=== PATIENT | male | born 1930 | race Caucasian/White ===

== ENCOUNTER 2016-08-16 13:56 | Day surgery (SDC) | payer OTHER ==
[~2016-08-16] VITALS: Ht 165.1 cm; Wt 69.8 kg
[~2016-08-16 13:56] MED LIST: ALLOPURINOL100 MG PO; DILTIAZEM 24HR240 MG PO; FLOMAX0.4 MG PO; ISOSORBIDE MONO30 MG PO; ISOSORBIDE MONO60 MG PO; LASIX40 MG PO; LIPITOR10 MG PO; METOPROLOL TART25 MG PO; POTASSIUM CHLO10 ME3 PO; PROCRIT10000 UNI1 SQ; PROSCAR5 MG PO; ROCALTROL0.25 MCG PO; TYLENOL REGULA325 MG PO; VENTOLIN HFA18 GM IH; WARFARIN SODIU2.5 MG PO; WARFARIN SODIUM5 MG PO; ZYLOPRIM100 MG PO
[2016-08-16 15:58] LABS: METH RESISTANT S AUREUS PCR NEGATIVE (NEGATIVE)
[2016-08-16 16:00] LABS: PROBE CHECK PASS; SPECIMEN PROCESSING CONTROL PASS
== END 2016-08-16 16:20 | disposition home or self-care (01) ==
LOC: CATH 13:56
PROVIDERS: Surgery
DX: T82.858A Stenosis of other vascular prosthetic devices, implants and grafts, initial encounter (principal); Y83.2 Surgical operation with anastomosis, bypass or graft as the cause of abnormal reaction of the patient, or of later complication, without mention of misadventure at the time of the procedure; Z99.2 Dependence on renal dialysis; I12.0 Hypertensive chronic kidney disease with stage 5 chronic kidney disease or end stage renal disease; N18.6 End stage renal disease; E78.5 Hyperlipidemia, unspecified; J44.9 Chronic obstructive pulmonary disease, unspecified; I25.10 Atherosclerotic heart disease of native coronary artery without angina pectoris; I25.2 Old myocardial infarction
CPT/HCPCS: 87641; C1725; C1769; C1894; J1644; J2250; J3010

== ENCOUNTER 2016-10-08 07:36 | Day surgery (SDC) | payer OTHER ==
[~2016-10-08] VITALS: Ht 165.1 cm; Wt 65.5 kg
[2016-10-08 08:08] VITALS: BP 170/67
[2016-10-08 08:36] LABS: HEMATOCRIT 34.4 % (38.0-50.0); MCH 31.5 PG (29.0-34.0); MCHC 30.8 G/DL (30.0-36.0); MCV 102.4 FL (86-99); MEAN PLAT.VOLUME 10.1 uM^3 (9.0-12.4); PLATELET COUNT 192 K/uL (156-360); RBC DIS.WIDTH-CV 16.5 % (11.8-14.6); RBC DIS.WIDTH-SD 61.2 % (39-53); RED BLOOD COUNT 3.36 M/uL (4.00-5.50)
[2016-10-08 09:12] LABS: ANION GAP 12 MEQ/L (2-14); CHLORIDE 104 MEQ/L (99-109); GFR ESTIMATE (CALCULATED) 8 mL/min/; GLUCOSE 89 mg/dL (70-99); POTASSIUM 4.7 MEQ/L (3.7-5.4); SAMPLE HEMOLYSIS CHECK 0; SAMPLE ICTERIC CHECK 0; SAMPLE LIPEMIA CHECK 0; SODIUM 138 MEQ/L (136-147); UREA NITROGEN (BUN) 53 mg/dL (9-23)
[2016-10-08 09:45] VITALS: BP 158/70
[2016-10-08 12:20] VITALS: BP 148/68
== END 2016-10-08 15:20 | disposition home or self-care (01) ==
LOC: SDC 07:36 → 2EAST 07:45
PROVIDERS: Surgery
DX: T82.868A Thrombosis due to vascular prosthetic devices, implants and grafts, initial encounter (principal); T82.858A Stenosis of other vascular prosthetic devices, implants and grafts, initial encounter; Y83.2 Surgical operation with anastomosis, bypass or graft as the cause of abnormal reaction of the patient, or of later complication, without mention of misadventure at the time of the procedure; I12.0 Hypertensive chronic kidney disease with stage 5 chronic kidney disease or end stage renal disease; N18.6 End stage renal disease; Z99.2 Dependence on renal dialysis; J44.9 Chronic obstructive pulmonary disease, unspecified; Z95.810 Presence of automatic (implantable) cardiac defibrillator; I25.10 Atherosclerotic heart disease of native coronary artery without angina pectoris; Z95.1 Presence of aortocoronary bypass graft; E78.5 Hyperlipidemia, unspecified; Z87.891 Personal history of nicotine dependence
CPT/HCPCS: 80048; 85027; 93005; C1725; C1757; C1769; C1874; C1894; C2628; G0378; J0690; J1644; J7030

== ENCOUNTER 2017-01-24 09:57 | Day surgery (SDC) | payer OTHER ==
[~2017-01-24] VITALS: Ht 170.2 cm; Wt 66.7 kg
== END 2017-01-24 12:30 | disposition home or self-care (01) ==
LOC: CATH 09:57
DX: T82.858A Stenosis of other vascular prosthetic devices, implants and grafts, initial encounter (principal); I12.0 Hypertensive chronic kidney disease with stage 5 chronic kidney disease or end stage renal disease; N18.6 End stage renal disease; Z99.2 Dependence on renal dialysis; E78.5 Hyperlipidemia, unspecified; I25.10 Atherosclerotic heart disease of native coronary artery without angina pectoris; Z95.1 Presence of aortocoronary bypass graft; I25.2 Old myocardial infarction; J44.9 Chronic obstructive pulmonary disease, unspecified; Z95.0 Presence of cardiac pacemaker; Z87.891 Personal history of nicotine dependence; Y83.2 Surgical operation with anastomosis, bypass or graft as the cause of abnormal reaction of the patient, or of later complication, without mention of misadventure at the time of the procedure
CPT/HCPCS: C1725; C1769; C1874; C1894; J1644; J2250; J3010